=== PATIENT | male | born 1955 | race Caucasian/White ===

== ENCOUNTER 2017-04-04 12:05 | Inpatient (IN) | payer OTHER ==
[2017-04-04] VITALS (15 sets, daily range): BP systolic 122–149; BP diastolic 65–81
[~2017-04-04] VITALS: Ht 180.3 cm; Wt 100.0 kg
[~2017-04-04 12:05] MED LIST: FOLI-17 PO; IRON45TA6 PO; LORA1TAB PO; MAGN64TA7 PO; MILK140C PO; MULT-658 PO; RIVA20TA PO
[2017-04-04] MEDS ORDERED: LORazepam 2 MG/ML, 1ML IVPush PRN (13:00)
[2017-04-04] MEDS ORDERED: ONDANSETRON 2MG/ML, 2ML IVPush PRN (13:00)
[2017-04-04] MEDS ORDERED: ENOXAPARIN 40 MG/0.4 ML SQ SCH (13:00)
[2017-04-04] MEDS ORDERED: PLEASE ENTER HEIGHT AND WEIGHT MC SCH (13:30)
[2017-04-04 13:38] LABS: WHITE BLOOD COUNT 4.5 x10^3/uL (3.4-10)
[2017-04-04 13:40] LABS: ASPARTATE AMINO TRANSFERASE 66 U/L (15-37); BLOOD UREA NITROGEN 13 mg/dL (7-18)
[2017-04-04 13:42] LABS: HEMATOCRIT 18.4 % (39.2-51.8); HEMOGLOBIN 5.7 g/dL (13.7-18.0)
[2017-04-04] MEDS ORDERED: MAGNESIUM SULFATE PMX 2GM/50ML 50 ML IV ONE (14:00)
[2017-04-04] MEDS ORDERED: PHYTONADIONE 10 MG/ML, 1ML SQ ONE (14:00)
[2017-04-04 14:42] LABS: FERRITIN 16.2 ng/mL (26-388)
[2017-04-04] MEDS: POTASSIUM CHLORIDE 20 MEQ, MAGNESIUM SULFATE 2 GM, THIAMINE 100 MG, MVI ADULT 10 ML, FO... IV SCH (14:52)
[2017-04-04] MEDS ORDERED: POTASSIUM CHLORIDE 20 MEQ, MAGNESIUM SULFATE 2 GM, THIAMINE 100 MG, MVI ADULT 10 ML, FO... IV SCH (15:00)
[2017-04-04 15:14] LABS: DAU SCREEN DISCLAIMER
[2017-04-05] MEDS ORDERED: TEMAZEPAM 15 MG CAPSULE PO ONE
[2017-04-05] MEDS ORDERED: LORazepam 2 MG/ML, 1ML IVPush ONE (02:00)
[2017-04-05 03:28] VITALS: BP 150/77
[2017-04-05 05:20] LABS: HEMATOCRIT 23.8 % (39.2-51.8); HEMOGLOBIN 7.7 g/dL (13.7-18.0); WHITE BLOOD COUNT 4.5 x10^3/uL (3.4-10)
[2017-04-05 05:42] LABS: ASPARTATE AMINO TRANSFERASE 60 U/L (15-37); BLOOD UREA NITROGEN 12 mg/dL (7-18)
[2017-04-05 07:03] VITALS: BP 135/75
[2017-04-05 07:26] LABS: OCCBLD OBC PASS
[2017-04-05] MEDS: PANTOPROZOLE 40MG TABLET PO SCH (07:31)
[2017-04-05] MEDS ORDERED: LORazepam 2 MG/ML, 1ML IVPush PRN (09:00)
[2017-04-05] MEDS ORDERED: LIDOCAINE 1%, 20ML ONE ×2 (09:04)
[2017-04-05] MEDS ORDERED: KETOROLAC 30 MG/1 ML IVPush ONE (09:30)
[2017-04-05] MEDS ORDERED: PHYTONADIONE 5 MG TABLET PO ONE (11:30)
[2017-04-05] MEDS ORDERED: POTASSIUM CHLORIDE 20 MEQ, MAGNESIUM SULFATE 2 GM, THIAMINE 100 MG, MVI ADULT 10 ML, FO... IV SCH (12:47)
[2017-04-05 12:55] LABS: HEMATOCRIT 24.9 % (39.2-51.8); HEMOGLOBIN 8.1 g/dL (13.7-18.0); WHITE BLOOD COUNT 5.4 x10^3/uL (3.4-10)
[2017-04-05 13:10] VITALS: BP 127/73
[2017-04-05] MEDS: POTASSIUM CHLORIDE 20 MEQ, MAGNESIUM SULFATE 2 GM, THIAMINE 100 MG, MVI ADULT 10 ML, FO... IV SCH (15:03)
[2017-04-05] MEDS: IRON SUCROSE COMPLEX 100MG/5ML IV SCH (16:47)
[2017-04-05 19:47] VITALS: BP 147/78
[2017-04-05] MEDS: TEMAZEPAM 30 MG CAPSULE PO PRN (22:06)
[2017-04-06 04:00] VITALS: BP 131/70
[2017-04-06 06:04] LABS: HEMATOCRIT 23.8 % (39.2-51.8); HEMOGLOBIN 7.8 g/dL (13.7-18.0); WHITE BLOOD COUNT 5.3 x10^3/uL (3.4-10)
[2017-04-06 06:05] LABS: BLOOD UREA NITROGEN 16 mg/dL (7-18)
[2017-04-06 06:08] LABS: ASPARTATE AMINO TRANSFERASE 48 U/L (15-37)
[2017-04-06 08:00] VITALS: BP 154/84
[2017-04-06] MEDS: IRON SUCROSE COMPLEX 100MG/5ML IV SCH (08:04)
[2017-04-06] MEDS: PANTOPROZOLE 40MG TABLET PO SCH (08:04)
[2017-04-06 14:33] VITALS: BP 145/78
[2017-04-06] MEDS: POTASSIUM CHLORIDE 20 MEQ, MAGNESIUM SULFATE 2 GM, THIAMINE 100 MG, MVI ADULT 10 ML, FO... IV SCH (16:24)
[2017-04-06] MEDS ORDERED: PHYTONADIONE 10 MG/ML, 1ML SQ ONE (19:30)
[2017-04-06 19:46] VITALS: BP 117/74
[2017-04-06] MEDS: TEMAZEPAM 30 MG CAPSULE PO PRN (21:29)
[2017-04-07 00:57] VITALS: BP 109/67
[2017-04-07 05:18] LABS: HEMATOCRIT 23.5 % (39.2-51.8); HEMOGLOBIN 7.7 g/dL (13.7-18.0); WHITE BLOOD COUNT 5.2 x10^3/uL (3.4-10)
[2017-04-07 06:04] LABS: ASPARTATE AMINO TRANSFERASE 36 U/L (15-37); BLOOD UREA NITROGEN 14 mg/dL (7-18)
[2017-04-07 08:30] VITALS: BP 113/69
[2017-04-07] MEDS ORDERED: PHYTONADIONE 5 MG TABLET PO ONE (09:00)
[2017-04-07] MEDS: PANTOPROZOLE 40MG TABLET PO SCH (09:38)
[2017-04-07] MEDS: ENOXAPARIN 40 MG/0.4 ML SQ SCH (09:38)
[2017-04-07] MEDS: IRON SUCROSE COMPLEX 100MG/5ML IV SCH (09:39)
[2017-04-07] MEDS: CHLORDIAZEPOXIDE 25 MG CAPSULE PO SCH ×3 (09:39→21:16)
[2017-04-07 14:30] VITALS: BP 145/81
[2017-04-07 18:35] VITALS: BP 114/68
[2017-04-07] MEDS: TEMAZEPAM 30 MG CAPSULE PO PRN (21:16)
[2017-04-07 23:52] LABS: HEMATOCRIT 25.8 % (39.2-51.8); HEMOGLOBIN 7.9 g/dL (13.7-18.0); WHITE BLOOD COUNT 5.2 x10^3/uL (3.4-10)
[2017-04-08 00:20] LABS: DIFF TOTAL CELLS COUNTED 100 CELL DIFF
[2017-04-08 00:25] LABS: ANISOCYTOSIS 1+; VERIFY COUNTS? YES
[2017-04-08 00:26] LABS: HYPOCHROMIA 1+; OVALOCYTES 1+; POLYCHROMASIA 1+
[2017-04-08 00:27] LABS: ECHINOCYTES 1+
[2017-04-08 00:29] VITALS: BP 116/69
[2017-04-08] MEDS: PANTOPROZOLE 40MG TABLET PO SCH (07:02)
[2017-04-08 08:30] VITALS: BP 115/66
[2017-04-08] MEDS: CHLORDIAZEPOXIDE 25 MG CAPSULE PO SCH ×3 (09:00→22:14)
[2017-04-08] MEDS ORDERED: FENTANYL PF 100 MCG/2ML ONE (10:03)
[2017-04-08] MEDS ORDERED: MIDAZOLAM 1 MG/ML, 2ML ONE (10:03)
[2017-04-08] MEDS ORDERED: PROPOFOL 10 MG/ML, 20ML ONE (10:25)
[2017-04-08] MEDS ORDERED: PROMETHAZINE 25 MG/ML, 1ML IV PRN (10:30)
[2017-04-08] MEDS ORDERED: HYDROmorphone 1 MG/ML, 1ML IV PRN (10:30)
[2017-04-08] MEDS ORDERED: ONDANSETRON 2MG/ML, 2ML IVPush PRN (10:30)
[2017-04-08] MEDS ORDERED: OXYcodone 5 MG/5 ML ORAL.SOL UDC PO PRN (10:30)
[2017-04-08] MEDS ORDERED: FENTANYL PF 100 MCG/2ML IV PRN (10:30)
[2017-04-08] MEDS ORDERED: LABETALOL 5MG/ML, 20ML IV PRN (10:30)
[2017-04-08] MEDS: ENOXAPARIN 40 MG/0.4 ML SQ SCH (11:48)
[2017-04-08] MEDS: IRON SUCROSE COMPLEX 100MG/5ML IV SCH (11:48)
[2017-04-08 14:30] VITALS: BP 130/83
[2017-04-08] MEDS: GOLYTELY 4,000ML ORAL.SOL PO SCH (18:10)
[2017-04-08 19:38] VITALS: BP 119/72
[2017-04-08 21:00] LABS: OCCBLD OBC PASS
[2017-04-08] MEDS: TEMAZEPAM 30 MG CAPSULE PO PRN (22:14)
[2017-04-09 00:53] VITALS: BP 115/67
[2017-04-09] MEDS: GOLYTELY 4,000ML ORAL.SOL PO SCH (04:06)
[2017-04-09 05:36] LABS: BLOOD UREA NITROGEN 10 mg/dL (7-18)
[2017-04-09 05:46] LABS: HEMATOCRIT 31.4 % (39.2-51.8); WHITE BLOOD COUNT 5.3 x10^3/uL (3.4-10)
[2017-04-09 07:40] VITALS: BP 132/79
[2017-04-09] MEDS: CHLORDIAZEPOXIDE 25 MG CAPSULE PO SCH ×3 (08:22→21:25)
[2017-04-09] MEDS: PANTOPROZOLE 40MG TABLET PO SCH (08:22)
[2017-04-09] MEDS: IRON SUCROSE COMPLEX 100MG/5ML IV SCH (08:22)
[2017-04-09] MEDS ORDERED: FENTANYL PF 100 MCG/2ML IV PRN (09:00)
[2017-04-09] MEDS ORDERED: LABETALOL 5MG/ML, 20ML IV PRN (09:00)
[2017-04-09] MEDS ORDERED: EPHEDRINE 50 MG/ML, 1ML IVPush PRN (09:00)
[2017-04-09] MEDS ORDERED: ALBUTEROL SULFATE 2.5 MG/3 ML NPPB PRN (09:00)
[2017-04-09] MEDS ORDERED: hydrALAzine 20 MG/ML, 1ML IV PRN (09:00)
[2017-04-09] MEDS ORDERED: ONDANSETRON 2MG/ML, 2ML IVPush PRN (09:00)
[2017-04-09] MEDS ORDERED: METOPROLOL 1 MG/ML, 5ML IV PRN (09:00)
[2017-04-09] MEDS ORDERED: MIDAZOLAM 1 MG/ML, 2ML ONE (09:02)
[2017-04-09] MEDS ORDERED: FENTANYL PF 100 MCG/2ML ONE (09:02)
[2017-04-09 10:39] VITALS: BP 127/74
[2017-04-09] MEDS: ENOXAPARIN 40 MG/0.4 ML SQ SCH (11:00)
[2017-04-09] MEDS ORDERED: PHYTONADIONE 5 MG TABLET PO ONE (11:00)
[2017-04-09 14:09] VITALS: BP 139/83
[2017-04-09] MEDS ORDERED: RIVAROXABAN 20 MG TABLET PO SCH ×2 (17:00)
[2017-04-09 18:51] VITALS: BP 109/61
[2017-04-09] MEDS: TEMAZEPAM 30 MG CAPSULE PO PRN (21:25)
[2017-04-10 03:55] VITALS: BP 106/60
[2017-04-10 08:34] VITALS: BP 107/51
[2017-04-10] MEDS: CHLORDIAZEPOXIDE 25 MG CAPSULE PO SCH (08:57)
[2017-04-10] MEDS: IRON SUCROSE COMPLEX 100MG/5ML IV SCH (08:57)
[2017-04-10 12:53] VITALS: BP 130/72
== END 2017-04-10 13:05 | disposition home or self-care (01) | DRG 378 ==
LOC: 4NOR 12:44
PROVIDERS: ADMIT Internal Medicine; ATTEND Internal Medicine
PROC: 30233N1 Transfusion of Nonautologous Red Blood Cells into Peripheral Vein, Percutaneous Approach (ICD-10-PCS; 2017-04-04)
PROC: 0DJ08ZZ Inspection of Upper Intestinal Tract, Via Natural or Artificial Opening Endoscopic (ICD-10-PCS; principal; 2017-04-08 10:30)
PROC: 0DBM8ZZ Excision of Descending Colon, Via Natural or Artificial Opening Endoscopic (ICD-10-PCS; 2017-04-09)
PROC: 0DBL8ZZ Excision of Transverse Colon, Via Natural or Artificial Opening Endoscopic (ICD-10-PCS; 2017-04-09)
DX: K92.2 Gastrointestinal hemorrhage, unspecified (principal); E44.1 Mild protein-calorie malnutrition; K74.60 Unspecified cirrhosis of liver; F10.229 Alcohol dependence with intoxication, unspecified; I10 Essential (primary) hypertension; D50.9 Iron deficiency anemia, unspecified; D62 Acute posthemorrhagic anemia; D12.3 Benign neoplasm of transverse colon; D12.4 Benign neoplasm of descending colon; I73.9 Peripheral vascular disease, unspecified; K57.90 Diverticulosis of intestine, part unspecified, without perforation or abscess without bleeding; K70.9 Alcoholic liver disease, unspecified; Z87.891 Personal history of nicotine dependence
CPT/HCPCS: 36415; 49083; 80048; 80053; 80307; 81001; 82272; 82607; 82728; 82746; 83540; 83550; 83690; 83735; 84100; 85025; 85045; 85610; 86850; 86900; 86923; 87086; 88305; 93005; J1650; J1756; J1885; J2250; J2704; J3010; J3411; J3430; J3475; J3480; J3490; J7042; J2060; P9016

== ENCOUNTER 2017-04-23 23:25 | Emergency (ER) | payer SELFPAY ==
[~2017-04-23] VITALS: Ht 180.3 cm; Wt 95.5 kg
[2017-04-23] MEDS ORDERED: SODIUM CHLORIDE FLUSH 10ML SYR IVF ONE (23:30)
[2017-04-23 23:49] LABS: HEMATOCRIT 29.3 % (39.2-51.8); HEMOGLOBIN 9.5 g/dL (13.7-18.0); WHITE BLOOD COUNT 7.5 x10^3/uL (3.4-10)
[2017-04-24] LABS: BLOOD UREA NITROGEN 13 mg/dL (7-18)
[2017-04-24 00:03] LABS: ANISOCYTOSIS 1+; HYPOCHROMIA 1+; POLYCHROMASIA 1+
[2017-04-24 00:04] LABS: OVALOCYTES 1+
[2017-04-24 00:06] LABS: ASPARTATE AMINO TRANSFERASE 107 U/L (15-37)
[2017-04-24 02:50] VITALS: BP 111/69
== END 2017-04-24 03:07 | disposition home or self-care (01) ==
LOC: ED 04-24 00:19
DX: S06.0X0A Concussion without loss of consciousness, initial encounter (principal); S00.03XA Contusion of scalp, initial encounter; F10.220 Alcohol dependence with intoxication, uncomplicated; W01.0XXA Fall on same level from slipping, tripping and stumbling without subsequent striking against object, initial encounter; Y93.89 Activity, other specified; Y92.009 Unspecified place in unspecified non-institutional (private) residence as the place of occurrence of the external cause; Y99.9 Unspecified external cause status
CPT/HCPCS: 36415; 70450; 72125; 80053; 80307; 81001; 85025; 85610; 85730; 93005; 99285; G0479

== ENCOUNTER 2017-05-04 11:46 | Inpatient (IN) | payer OTHER ==
[~2017-05-04] VITALS: Ht 180.3 cm; Wt 97.6 kg
[2017-05-04] MEDS ORDERED: PLEASE ENTER HEIGHT AND WEIGHT MC SCH (12:30)
[2017-05-04] MEDS ORDERED: ONDANSETRON 2MG/ML, 2ML IVPush PRN (12:30)
[2017-05-04] MEDS ORDERED: LABETALOL 5MG/ML, 20ML IVPush PRN (12:30)
[2017-05-04] MEDS ORDERED: ENOXAPARIN 40 MG/0.4 ML SQ SCH (12:30)
[2017-05-04 13:00] VITALS: BP 135/81
[2017-05-04 14:04] LABS: BLOOD UREA NITROGEN 9 mg/dL (7-18)
[2017-05-04 14:07] LABS: ASPARTATE AMINO TRANSFERASE 71 U/L (15-37)
[2017-05-04 14:38] LABS: HEMATOCRIT 32.4 % (39.2-51.8); HEMOGLOBIN 10.5 g/dL (13.7-18.0); WHITE BLOOD COUNT 5.6 x10^3/uL (3.4-10)
[2017-05-04] MEDS: POTASSIUM CHLORIDE 20 MEQ, MAGNESIUM SULFATE 1 GM, FOLIC ACID 1 MG, THIAMINE 100 MG, MV... IV SCH (15:32)
[2017-05-04] MEDS: CHLORDIAZEPOXIDE 25 MG CAPSULE PO SCH ×2 (16:34→20:48)
[2017-05-04] MEDS ORDERED: TEMAZEPAM 15 MG CAPSULE ONE (19:33)
[2017-05-04 19:34] VITALS: BP 137/85
[2017-05-04] MEDS: TEMAZEPAM 30 MG CAPSULE PO PRN (19:37)
[2017-05-04] MEDS ORDERED: MAGNESIUM SULFATE PMX 2GM/50ML 50 ML IV ONE (22:00)
[2017-05-04] MEDS ORDERED: POTASSIUM PHOSPHATE 44 MEQ in SODIUM CHLORIDE 0.9% 500 ML IV ONE (22:00)
[2017-05-04] MEDS: LORazepam 2 MG/ML, 1ML IVPush PRN (22:31)
[2017-05-05 04:50] VITALS: BP 136/71
[2017-05-05 05:37] LABS: ASPARTATE AMINO TRANSFERASE 58 U/L (15-37); BLOOD UREA NITROGEN 9 mg/dL (7-18)
[2017-05-05 07:49] VITALS: BP 152/81
[2017-05-05] MEDS: CHLORDIAZEPOXIDE 25 MG CAPSULE PO SCH ×3 (08:40→20:46)
[2017-05-05] MEDS: LORazepam 2 MG/ML, 1ML IVPush PRN ×2 (10:36→16:17)
[2017-05-05 12:05] VITALS: BP 158/82
[2017-05-05] MEDS: POTASSIUM CHLORIDE 20 MEQ, MAGNESIUM SULFATE 1 GM, FOLIC ACID 1 MG, THIAMINE 100 MG, MV... IV SCH ×2 (12:30→16:18)
[2017-05-05] MEDS: ENOXAPARIN 40 MG/0.4 ML SQ SCH (16:18)
[2017-05-05 18:31] VITALS: BP 148/78
[2017-05-05] MEDS ORDERED: TEMAZEPAM 15 MG CAPSULE ONE (20:43)
[2017-05-05] MEDS: TEMAZEPAM 30 MG CAPSULE PO PRN (20:46)
[2017-05-05] MEDS: POLYETHYLENE GLYCOL 17 GM PACKET PO PRN (20:53)
[2017-05-06 02:00] VITALS: BP 152/76
[2017-05-06 05:28] LABS: ASPARTATE AMINO TRANSFERASE 44 U/L (15-37); BLOOD UREA NITROGEN 12 mg/dL (7-18)
[2017-05-06 07:36] VITALS: BP 136/78
[2017-05-06] MEDS: CHLORDIAZEPOXIDE 25 MG CAPSULE PO SCH ×3 (09:17→20:39)
[2017-05-06] MEDS: POLYETHYLENE GLYCOL 17 GM PACKET PO PRN (09:18)
[2017-05-06] MEDS: FOLIC ACID 1 MG TABLET PO SCH (10:18)
[2017-05-06] MEDS: THIAMINE 100MG TABLET PO SCH (10:18)
[2017-05-06] MEDS: MULTIVITAMIN 1 TABLET PO SCH (10:18)
[2017-05-06] MEDS: LORazepam 2 MG/ML, 1ML IVPush PRN ×2 (10:19→20:39)
[2017-05-06 13:01] VITALS: BP_SYST 117; BP_SYST 150; BP_DIAS 76; BP_DIAS 84
[2017-05-06] MEDS: POTASSIUM CHLORIDE 20 MEQ, MAGNESIUM SULFATE 1 GM, FOLIC ACID 1 MG, THIAMINE 100 MG, MV... IV SCH (16:00)
[2017-05-06] MEDS: ENOXAPARIN 40 MG/0.4 ML SQ SCH (17:58)
[2017-05-06 20:03] VITALS: BP 130/78
[2017-05-06] MEDS ORDERED: TEMAZEPAM 15 MG CAPSULE ONE (20:33)
[2017-05-06] MEDS: TEMAZEPAM 30 MG CAPSULE PO PRN (20:36)
[2017-05-07] MEDS: LORazepam 2 MG/ML, 1ML IVPush PRN ×2 (02:34→23:15)
[2017-05-07 05:15] VITALS: BP 132/80
[2017-05-07 06:15] LABS: HEMATOCRIT 29.6 % (39.2-51.8); HEMOGLOBIN 9.7 g/dL (13.7-18.0); WHITE BLOOD COUNT 4.3 x10^3/uL (3.4-10)
[2017-05-07 06:31] LABS: ASPARTATE AMINO TRANSFERASE 37 U/L (15-37); BLOOD UREA NITROGEN 14 mg/dL (7-18)
[2017-05-07 06:57] VITALS: BP 118/70
[2017-05-07] MEDS ORDERED: MAGNESIUM SULFATE PMX 2GM/50ML 50 ML IV ONE (08:30)
[2017-05-07] MEDS: THIAMINE 100MG TABLET PO SCH (10:24)
[2017-05-07] MEDS: MULTIVITAMIN 1 TABLET PO SCH (10:24)
[2017-05-07] MEDS: CHLORDIAZEPOXIDE 25 MG CAPSULE PO SCH ×3 (10:24→20:45)
[2017-05-07] MEDS: FOLIC ACID 1 MG TABLET PO SCH (10:24)
[2017-05-07 14:15] VITALS: BP 121/67
[2017-05-07] MEDS ORDERED: FLU VACC QS2017-18 (36MOS+) UP/PF 0.5 ML IM-VACC ONE ×2 (15:00→21:00)
[2017-05-07] MEDS ORDERED: PNEUMOCOCCAL 23 VACCINE IM-VACC ONE ×2 (15:00→21:00)
[2017-05-07] MEDS: POTASSIUM CHLORIDE 20 MEQ, MAGNESIUM SULFATE 1 GM, FOLIC ACID 1 MG, THIAMINE 100 MG, MV... IV SCH (16:00)
[2017-05-07] MEDS: ENOXAPARIN 40 MG/0.4 ML SQ SCH (16:53)
[2017-05-07 18:56] VITALS: BP 128/80
[2017-05-07] MEDS: TEMAZEPAM 30 MG CAPSULE PO PRN (20:45)
[2017-05-08 01:38] VITALS: BP 125/81
[2017-05-08 06:42] LABS: ASPARTATE AMINO TRANSFERASE 41 U/L (15-37); BLOOD UREA NITROGEN 19 mg/dL (7-18)
[2017-05-08 07:45] VITALS: BP 124/65
[2017-05-08] MEDS: CHLORDIAZEPOXIDE 25 MG CAPSULE PO SCH ×2 (09:19→19:58)
[2017-05-08] MEDS: NS + 20MEQ KCL 1,000 ML IV SCH ×2 (09:19→19:58)
[2017-05-08] MEDS: MULTIVITAMIN 1 TABLET PO SCH (09:19)
[2017-05-08] MEDS: THIAMINE 100MG TABLET PO SCH (09:19)
[2017-05-08] MEDS: FOLIC ACID 1 MG TABLET PO SCH (09:19)
[2017-05-08 14:54] VITALS: BP 148/77
[2017-05-08] MEDS: ENOXAPARIN 40 MG/0.4 ML SQ SCH (15:06)
[2017-05-08] MEDS: POTASSIUM CHLORIDE 20 MEQ, MAGNESIUM SULFATE 1 GM, FOLIC ACID 1 MG, THIAMINE 100 MG, MV... IV SCH (16:00)
[2017-05-08 19:35] VITALS: BP 122/60
[2017-05-08] MEDS: TEMAZEPAM 30 MG CAPSULE PO PRN (19:58)
[2017-05-08] MEDS: LORazepam 2 MG/ML, 1ML IVPush PRN (22:56)
[2017-05-09 02:30] VITALS: BP 120/63
[2017-05-09 06:00] LABS: BLOOD UREA NITROGEN 16 mg/dL (7-18)
[2017-05-09 06:03] LABS: ASPARTATE AMINO TRANSFERASE 36 U/L (15-37)
[2017-05-09 07:01] VITALS: BP 154/80
[2017-05-09] MEDS: FOLIC ACID 1 MG TABLET PO SCH (07:53)
[2017-05-09] MEDS: NS + 20MEQ KCL 1,000 ML IV SCH ×2 (07:53→17:00)
[2017-05-09] MEDS: THIAMINE 100MG TABLET PO SCH (07:53)
[2017-05-09] MEDS: LORazepam 2 MG/ML, 1ML IVPush PRN ×2 (07:53→22:32)
[2017-05-09] MEDS: CHLORDIAZEPOXIDE 25 MG CAPSULE PO SCH ×2 (07:54→20:13)
[2017-05-09] MEDS: MULTIVITAMIN 1 TABLET PO SCH (07:54)
[2017-05-09] MEDS: MAGNESIUM OXIDE 400 MG TABLET PO SCH (10:29)
[2017-05-09] MEDS: ENOXAPARIN 40 MG/0.4 ML SQ SCH (15:00)
[2017-05-09] MEDS ORDERED: MAGNESIUM SULFATE PMX 2GM/50ML 50 ML IV ONE (15:00)
[2017-05-09 15:08] VITALS: BP 130/85
[2017-05-09] MEDS: POTASSIUM CHLORIDE 20 MEQ, MAGNESIUM SULFATE 1 GM, FOLIC ACID 1 MG, THIAMINE 100 MG, MV... IV SCH (16:00)
[2017-05-09 19:45] VITALS: BP 132/77
[2017-05-09] MEDS: TEMAZEPAM 30 MG CAPSULE PO PRN (20:13)
[2017-05-10] MEDS: NS + 20MEQ KCL 1,000 ML IV SCH ×3 (00:51→19:26)
[2017-05-10 01:18] VITALS: BP 110/51
[2017-05-10] MEDS: LORazepam 2 MG/ML, 1ML IVPush PRN ×3 (01:42→23:13)
[2017-05-10 07:59] LABS: BLOOD UREA NITROGEN 18 mg/dL (7-18)
[2017-05-10 08:02] LABS: ASPARTATE AMINO TRANSFERASE 44 U/L (15-37)
[2017-05-10 08:30] VITALS: BP 116/72
[2017-05-10] MEDS: FOLIC ACID 1 MG TABLET PO SCH (08:39)
[2017-05-10] MEDS: MULTIVITAMIN 1 TABLET PO SCH (08:39)
[2017-05-10] MEDS: MAGNESIUM OXIDE 400 MG TABLET PO SCH (08:39)
[2017-05-10] MEDS: CHLORDIAZEPOXIDE 25 MG CAPSULE PO SCH (08:39)
[2017-05-10] MEDS: THIAMINE 100MG TABLET PO SCH (08:40)
[2017-05-10 13:35] VITALS: BP 107/65
[2017-05-10] MEDS: ENOXAPARIN 40 MG/0.4 ML SQ SCH (15:00)
[2017-05-10] MEDS: POTASSIUM CHLORIDE 20 MEQ, MAGNESIUM SULFATE 1 GM, FOLIC ACID 1 MG, THIAMINE 100 MG, MV... IV SCH (15:14)
[2017-05-10 19:39] VITALS: BP 127/79
[2017-05-10] MEDS: TEMAZEPAM 30 MG CAPSULE PO PRN (19:54)
[2017-05-11 02:54] VITALS: BP 106/64
[2017-05-11 07:25] VITALS: BP 110/74
[2017-05-11] MEDS ORDERED: CHLORDIAZEPOXIDE 25 MG CAPSULE PO SCH (09:00)
[2017-05-11] MEDS: NS + 20MEQ KCL 1,000 ML IV SCH (09:00)
[2017-05-11] MEDS: THIAMINE 100MG TABLET PO SCH (09:02)
[2017-05-11] MEDS: FOLIC ACID 1 MG TABLET PO SCH (09:02)
[2017-05-11] MEDS: MAGNESIUM OXIDE 400 MG TABLET PO SCH (09:02)
[2017-05-11] MEDS: MULTIVITAMIN 1 TABLET PO SCH (09:02)
== END 2017-05-11 10:05 | disposition home or self-care (01) | DRG 438 ==
LOC: 4NOR 11:46 → 3NE 17:42
PROVIDERS: ADMIT Hospitalist; ATTEND Hospitalist
DX: K85.20 Alcohol induced acute pancreatitis without necrosis or infection (principal); E43 Unspecified severe protein-calorie malnutrition; N17.0 Acute kidney failure with tubular necrosis; F10.239 Alcohol dependence with withdrawal, unspecified; E83.39 Other disorders of phosphorus metabolism; E83.42 Hypomagnesemia; E87.6 Hypokalemia; D64.9 Anemia, unspecified; Z68.30 Body mass index [BMI] 30.0-30.9, adult
CPT/HCPCS: 36415; 80053; 83690; 83735; 84100; 85025; 85610; 90686; 90732; J1650; J3411; J3475; J3480; J7042; J2060; J7040